=== PATIENT | female | born 1955 | race Caucasian/White ===

== ENCOUNTER → 2019-09-06 | Outpatient (CLI) | payer BC ==
[~2019-09-06] MED LIST: DICL75TA PO; GABA-585 PO; GABA100C81 PO
[2019-09-06 11:41] VITALS: BP 140/94
== END | disposition home or self-care (01) ==
LOC: SURG 10:59
PROVIDERS: ATTEND Anesthesiology Pain Medicine
DX: S93.331A Other subluxation of right foot, initial encounter (principal); G90.521 Complex regional pain syndrome I of right lower limb; Z79.899 Other long term (current) drug therapy; X58.XXXA Exposure to other specified factors, initial encounter; Y93.89 Activity, other specified; Y92.89 Other specified places as the place of occurrence of the external cause; Y99.8 Other external cause status
CPT/HCPCS: 99203